=== PATIENT | female | born 1980 | race Two or more races ===

== ENCOUNTER 2021-06-30 16:04 | Emergency (ER) | payer OTHER ==
[~2021-06-30] VITALS: Ht 160 cm; Wt 97.5 kg
[2021-06-30] MEDS ORDERED: SYNTHROID50 MCG PO (16:45)
== END 2021-06-30 19:34 | disposition home or self-care (01) ==
LOC: ER 16:04
DX: B34.9 Viral infection, unspecified (principal); Z20.822 Contact with and (suspected) exposure to COVID-19